=== PATIENT | male | born 1945 | race Caucasian/White ===

== ENCOUNTER 2016-10-02 09:05 | Day surgery (SDC) | payer MEDICARE ==
[~2016-10-02] VITALS: Ht 180.3 cm; Wt 83.9 kg
[~2016-10-02 09:05] MED LIST: 0.9% Sodium Chloride 1,000 ML IV SCH; AMLO5TAB2 PO; ETOD400T PO; FINA5TAB9 PO; LIP40 PO; SERT25TA6 PO; Sodium Chloride LOK Flush 10 mL Syringe IV PRN; TRAZ-118 PO; fentaNYL-PF 50 mCg/mL 2 mL Inj IVPUSH PRN
[2016-10-02 09:36] VITALS: BP 142/71; PULSE 87; RESP 16; O2SAT 97
[2016-10-02] MEDS ORDERED: 0.9% Sodium Chloride 1,000 ML IV ONE (10:57)
[2016-10-02 11:13] VITALS: BP 105/51; PULSE 77; RESP 12; O2SAT 94
[2016-10-02 11:28] VITALS: BP 108/51; PULSE 80; RESP 14; O2SAT 96
--- NOTE | 2016-10-02 12:26 | ENDO ---
[address] [address] ENDOSCOPY PROCEDURE PATIENT: TURNER WEN : 1945 MR#: [id number] ADMIT: 10/02/2016 JOB ID: [id number] DATE OF SERVICE: 10/02/2016 FIRST PROCEDURE PERFORMED: Esophagogastroduodenoscopy. INDICATION: Gastroesophageal reflux. ASA CLASSIFICATION: The patient's ASA classification is II. MALLAMPATI SCORE: Mallampati score is 2. MEDICATIONS: 1. Versed 5 mg. 2. Fentanyl 150 mcg. INSTRUMENT USED: GIF-H180J. PROCEDURE DETAILS: After informed consent was obtained, the patient was brought into the GI suite, where he was placed on oxygen via nasal cannula and monitored with continuous pulse oximeter, telemetry, and blood pressure monitoring. A time-out was performed. Then, he was placed in the left lateral decubitus position, and medications were administered for sedation. A bite block was placed. A standard EGD scope was then inserted through the bite block and advanced under direct visualization to the second portion of the duodenum without difficulty. FINDINGS: 1. Normal appearing duodenal bulb, first and second portions. 2. Normal appearing pylorus. In the antrum and body of the stomach, there was mild erythema suggestive of gastritis. Multiple random biopsies were obtained. 3. Retroflexed views in the gastric body revealed normal appearing cardia and fundus. 4. The GE junction was at approximately 42 cm. Arising from the GE junction there were several ulcerated areas suggestive of esophagitis consistent with [place] Class A ulcerative esophagitis. Multiple biopsies were obtained. The remainder of the esophagus otherwise unremarkable. IMPRESSION: [place] class A ulcerative esophagitis. RECOMMENDATIONS: 1. PPI daily. 2. Reflux precautions. 3. Proceed to colonoscopy. COMPLICATIONS: None. ESTIMATED BLOOD LOSS: Less than 5 mL. SECOND PROCEDURE PERFORMED: Colonoscopy. INDICATION: Colon cancer screening. The patient has a family history of colon cancer. His father was diagnosed with colon cancer at the age of 79. ASA CLASSIFICATION, MALLAMPATI SCORE AND MEDICATIONS: Please see above for ASA classification, Mallampati score and medications. INSTRUMENT USED: PCF-H180AL. PREPARATION QUALITY: Fair. PROCEDURE DETAILS: After completion of the EGD exam, the patient was turned and then, a digital rectal exam was performed which was unremarkable. The colonoscope was then inserted into the rectum and advanced under direct visualization to the cecum, which was identified by the presence of the ileocecal valve and appendiceal orifice. Once the cecum was reached, the colonoscope was withdrawn back into the rectum as the mucosa and lumen were examined. In the rectum, retroflexion was performed. Following retroflexion, remaining air in the rectum was suctioned, and procedure was completed. FINDINGS: Scattered diverticula were seen throughout the left side of the colon. Otherwise, normal exam from rectum to cecum. IMPRESSION: Left-sided diverticulosis. RECOMMENDATIONS: 1. Repeat colonoscopy in five years. 2. Fiber rich diet. COMPLICATIONS: None. ESTIMATED BLOOD LOSS: Less than 5 mL.
--- NOTE | 2016-10-03 13:13 | PATH ---
SURGICAL PATHOLOGY Attending Physician:Pérez Novoa CASE STATUS: Signed Out PATIENT NAME: TURNER WEN PID: [id number] : 1945 DATE COLLECTED:10/02/2016 22:29 SPECIMEN: 1: Gastric, Biopsy 2: Esophagus, Biopsy CLINICAL HISTORY: 1). GASTRIC BIOPSY, ALSO TEST FOR H.PYLORI 2). DISTAL ESOPHAGUS FINAL DIAGNOSIS: 1.GASTRIC BIOPSY: FRAGMENTS OF ANTRAL AND FUNDIC MUCOSA NEGATIVE FOR SIGNIFICANT INFLAMMATION. Negative for evidence of Helicobacter on H&E stain. Negative for intestinal metaplasia. Negative for dysplasia and malignancy. 2.BIOPSIES, DISTAL ESOPHAGUS: SQUAMOUS MUCOSA AND GASTRIC CARDIA-TYPE MUCOSA, NEGATIVE FOR SPECIALIZED METAPLASIA OF CROOKS' S-TYPE ESOPHAGUS. CHRONIC INFLAMMATION WITH REACTIVE EPITHELIAL CHANGES AND SCATTERED EOSINOPHILS WITHIN SQUAMOUS EPITHELIUM (CHANGES CONSISTENT WITH THOSE OF CHRONIC REFLUX). Negative for dysplasia and malignancy. ICD10 K21.0 GROSS DESCRIPTION: The specimen is received in two formalin filled containers labeled with the patient's name. 1). The specimen is sublabeled "gastric" and consists of 2 portions of tissue which aggregate to 0.3 x 0.3 x 0.2 CM. The specimen is entirely submitted in cassette 1A. 2). The specimen is sublabeled "distal esophagus" and consists of 3 portions of tissue which aggregate to 0.3 x 0.3 x 0.2 CM. The specimen is totally submitted in cassette 2A. 10/02/2016 [facility] MICRO DESCRIPTION: See diagnosis. ICD-9 CODES: CPT CODES: 1: 40474 2: 56581 Electronically Signed Out Kalyan Adhikari MD [facility] [address], [place] [address] Technical component performed at [facility], [facility] [address], [place], [address]
== END 2016-10-02 23:59 | disposition home or self-care (01) ==
LOC: END 09:05
PROVIDERS: ATTEND Internal Medicine Gastroenterology
DX: Z12.11 Encounter for screening for malignant neoplasm of colon (principal); K57.30 Diverticulosis of large intestine without perforation or abscess without bleeding; Z80.0 Family history of malignant neoplasm of digestive organs; K21.9 Gastro-esophageal reflux disease without esophagitis; I10 Essential (primary) hypertension; F41.8 Other specified anxiety disorders; N40.0 Benign prostatic hyperplasia without lower urinary tract symptoms; M54.9 Dorsalgia, unspecified
CPT/HCPCS: 43239; 99153; G0105; G0500; J2250; J3010; J7030